=== PATIENT | female | born 1990 | race Caucasian/White ===

== ENCOUNTER 2019-05-01 07:00 | Observation (INO) | payer OTHER ==
[~2019-05-01] VITALS: Ht 160 cm; Wt 79.4 kg
== END 2019-05-01 08:10 | disposition home or self-care (01) | DRG 833 ==
LOC: LDRP 07:00
PROVIDERS: ADMIT Obstetrics & Gynecology; ATTEND Obstetrics & Gynecology
DX: O62.9 Abnormality of forces of labor, unspecified (principal); O12.03 Gestational edema, third trimester; O26.893 Other specified pregnancy related conditions, third trimester; R11.0 Nausea; Z3A.40 40 weeks gestation of pregnancy
CPT/HCPCS: 59025; 81002; G0378

== ENCOUNTER 2019-05-02 00:28 | Inpatient (IN) | payer OTHER ==
[~2019-05-02] VITALS: Ht 160 cm; Wt 79.4 kg
[2019-05-02] MEDS ORDERED: LACT. RINGERS/OXYTOCIN 20UNITS 1,000 ML IV SCH (01:09)
[2019-05-02] MEDS ORDERED: LIDOCAINE 2%HCL (LOCAL ANESTH.) INJ 20ML MDV ID ONE (01:15)
[2019-05-02] MEDS ORDERED: METHYLERGONOVINE MALEATE 0.2 MG/ML AMP IM PRN (01:15)
[2019-05-02] MEDS ORDERED: DERMOPLAST 60ML BOTTLE TOP PRN (01:15)
[2019-05-02] MEDS ORDERED: CARBOPROST TROMETHAMINE 250 MCG/1ML VIAL IM PRN (01:15)
[2019-05-02] MEDS ORDERED: PHISODERM TOP SOLN 240ML BTL TOP PRN (01:15)
[2019-05-02] MEDS ORDERED: BUTORPHANOL TARTRATE 2 MG/1 ML VIAL IM PRN (01:15)
[2019-05-02] MEDS ORDERED: WITCH HAZEL-GLYCERIN PAD TOP PRN (01:15)
[2019-05-02 01:55] LABS: Basophils # (auto) 0 uL; Basophils % (auto) 0.1 % (0.0-2.0); Eosinophils # (auto) 0 uL; Eosinophils % (auto) 0.1 % (0.0-7.0); Hemoglobin 13.1 g/dL (12.2-16.2); Lymphocytes # (auto) 1.6 uL; Lymphocytes % (auto) 12.7 % (10.0-50.0); Mean Corpuscular Hemoglobin 28.5 pg (28.0-32.0); Mean Corpuscular Hgb Conc. 33.4 g/dL (32.0-36.0); Mean Corpuscular Volume 85.3 fL (80.0-100.0); Monocytes # (auto) 0.8 uL; Monocytes % (auto) 6.8 % (0.0-12.0); Neutrophils % (auto) 80.3 % (37.0-80.0); Nucleated Red Blood Cells % 0.1 %; Platelet Count (auto) 315 10^3/uL (140-450); Red Blood Cells 4.58 10^6/uL (4.0-5.20); Red Cell Distribution Width 14.7 % (11.8-14.3); White Blood Cell 12.5 10^3/uL (4.4-10.8)
[2019-05-02 01:59] LABS: Urine Bacteria FEW /hpf (None Seen); Urine Blood Negative /uL (Negative); Urine Mucus FEW (None Seen); Urine Specific Gravity 1.018 (1.001-1.035); Urine WBC 6 /hpf (0 - 5)
[2019-05-02 02:07] LABS: INR 0.96 (0.9-1.15); Partial Thromboplastin Time 28.8 sec (23.64-32.05)
[2019-05-02 02:15] LABS: Albumin 2.8 g/dL (3.4-5.0); BUN/Creatinine Ratio 11.9; Calcium 8.8 mg/dL (8.5-10.1); Potassium 3.6 mmol/L (3.5-5.1)
[2019-05-02 02:18] LABS: Bilirubin, Total 0.8 mg/dL (0.2-1.0); Total Protein 7.5 g/dL (6.4-8.2)
[2019-05-02] MEDS ORDERED: ceFAZolin 1GM/50ML 50 ML IV ONE (02:45)
[2019-05-02] MEDS ORDERED: ceFAZolin 1GM/50ML 100 ML IV ONE (02:48)
[2019-05-02 02:58] LABS: Alcohol, Urine < 3.0 mg/dL (0-5); Amphetamine Screen, Urine NEGATIVE (NEGATIVE); Barbiturate Scree,Urine NEGATIVE (NEGATIVE); Benzodiazephine Screen, Urine NEGATIVE (NEGATIVE); Cannabinoid Screen, Urine NEGATIVE (NEGATIVE); Cocaine Screen, Urine NEGATIVE (NEGATIVE); Opiate Scree,Urine NEGATIVE (NEGATIVE); Phencyclidine Screen, Urine NEGATIVE (NEGATIVE)
[2019-05-02] MEDS ORDERED: ePHEDrine SULFATE 50 MG/ML AMP IV PRN (03:30)
[2019-05-02] MEDS ORDERED: LIDOCAINE HCL 2 %PF INJ 10ML AMP IJ ONE ×2 (03:30→21:53)
[2019-05-02] MEDS ORDERED: fentaNYL CITRATE 100 MCG/2 ML VL IV ONE (03:30)
[2019-05-02] MEDS: LACTATED RINGER'S 1,000 ML IV SCH ×3 (04:20→12:02)
[2019-05-02] MEDS: fentaNYL 200mCg/100ml W ROPIVA 100 ML EPI SCH ×2 (04:36→14:29)
[2019-05-02] MEDS ORDERED: ceFAZolin 1GM/50ML 50 ML IV SCH (14:00)
[2019-05-02] MEDS ORDERED: fentaNYL CITRATE 100 MCG/2 ML VL ONE (21:54)
[2019-05-02] MEDS ORDERED: SUCCINYLCHOLINE CHLORIDE 20 MG/ML 10ML VIAL IV ONE (22:02)
[2019-05-02] MEDS ORDERED: PROPOFOL 10 MG/ML 20 ML IV ONE (22:06)
[2019-05-02] MEDS ORDERED: ePHEDrine SULFATE 50 MG/ML AMP ONE (22:08)
[2019-05-02] MEDS ORDERED: OXYTOCIN 10 UNIT/ML 10ML VIAL ONE (22:09)
[2019-05-02] MEDS ORDERED: CLINDAMYCIN 900MG IV 50 ML IV ONE ×2 (22:12→23:30)
[2019-05-02] MEDS ORDERED: PHENYLEPHRINE HCL 10 MG/ML VL ONE (22:21)
[2019-05-02] MEDS ORDERED: MORPHINE SULF(PF) 0.5MG/ML 10ML VIAL ONE (22:33)
[2019-05-02] MEDS ORDERED: MIDAZOLAM HCL 1MG/1ML-2 ML VIAL ONE (22:44)
[2019-05-02] MEDS ORDERED: ONDANSETRON HCL 4 MG/2 ML VIAL IV PRN ×3 (23:00→23:30)
[2019-05-02] MEDS ORDERED: METOCLOPRAMIDE HCL 5MG/ml INJ 2ml VIAL IV PRN (23:00)
[2019-05-02] MEDS ORDERED: diphenhdrAMINE HCL 50 MG/1 ML VL IV PRN (23:00)
[2019-05-02] MEDS ORDERED: KETOROLAC TROMETH 15 mg/ml 1ML VL IV PRN (23:00)
[2019-05-02] MEDS ORDERED: NALOXONE HCL 0.4 MG/ML VIAL IV PRN ×2 (23:00)
[2019-05-02] MEDS ORDERED: HYDROmorphone HCL 2 MG/ML VL IV PRN (23:00)
[2019-05-02] MEDS ORDERED: ACETAMINOPHEN IV 1000 MG/100ML (10MG/ML) IV PRN (23:30)
[2019-05-03] VITALS (16 sets, daily range): BP systolic 102–129; BP diastolic 54–79
--- NOTE | 2019-05-03 00:05 | NUR ---
Report from NATE in PACU Patient A&O x4. VS: 121/74 HR 84 SR, 98.2 temp 97% on room air. EBL was 800ml, Collins patient and draining to gravity total out 575ml. On clear liquid diet. Pt. received Duramorph, 40of PIT, now running LR bolus per Dr. Herrera. Per Dr. Herrera give another 1L of LR at 125ml/hr. Patient received 900mg of Clindamycin in OR approx 2212. and Dilaudid 0.25mg at 2329 Firm deep 2 above U with no bleeding, perineum swollen.
--- NOTE | 2019-05-03 00:10 | NUR ---
Post Op for LDRP: Received patient from PACU via bed to room 8B. Assessment with ROSTER CLERK clive. Patient 2 above U firm and no bleeding at this time. Patient A/A/Ox4, abdominal binder and bilateral SCD's are in place, IV fluids placed on pump and infusing per order, incisional site dressing clean/dry/intact and Collins Catheter to gravity draining clear yellow urine.
[2019-05-03] MEDS: LACTATED RINGER'S 1,000 ML IV SCH ×3 (00:47→17:16)
[2019-05-03] MEDS ORDERED: GENTAMICIN SULFATE 80 MG in D5W 5% 100 ML IV SCH ×2 (06:00→08:00)
--- NOTE | 2019-05-03 06:15 | NUR ---
Report received from Magi Dorado RN on stable pt. Assumed care. Addendum: 05/03/19 at 0646 by Jacki Avila RN Amended: Links added.
--- NOTE | 2019-05-03 06:31 | NUR ---
Lower abdominal incision open to air, dressing C/D/I. Abdominal binder in place and SCD's on. Pt educated on importance of using Incentive Spirometer. Pt educated to use IS at least 10 x per hour while awake. Pt verbalizes understanding of teaching. Addendum: 05/03/19 at 0704 by Jacki Avila RN Amended: Links added.
[2019-05-03 07:20] LABS: Basophils # (auto) 0 uL; Basophils % (auto) 0.2 % (0.0-2.0); Eosinophils # (auto) 0 uL; Hematocrit 27.7 % (36.0-46.0); Hemoglobin 9.5 g/dL (12.2-16.2); Lymphocytes # (auto) 1.9 uL; Mean Corpuscular Hemoglobin 29.3 pg (28.0-32.0); Mean Corpuscular Hgb Conc. 34.1 g/dL (32.0-36.0); Mean Corpuscular Volume 86.1 fL (80.0-100.0); Monocytes # (auto) 1.4 uL; Neutrophils % (auto) 80.8 % (37.0-80.0); Platelet Count (auto) 249 10^3/uL (140-450); Red Blood Cells 3.22 10^6/uL (4.0-5.20); White Blood Cell 17.3 10^3/uL (4.4-10.8)
--- NOTE | 2019-05-03 08:40 | NUR ---
Breast pump provided to pt. Pt educated on the benefits of pumping for . Pt educated on pumping every 2-3 hours for at least 15 minutes to stimulate breast milk production. Pt verbalizes understanding and return demonstration provided by pt. Pt also educated on the importance of pain management. Pt verbalizes understanding and declines pain medication at this time.
--- NOTE | 2019-05-03 08:47 | NUR ---
Dr. Jensen called and informed of current Hgb 9.5 and HCT 27.7, CBC trends given. Dr. Jensen states that she will inform Dr. Leavitt. No new orders received.
[2019-05-03] MEDS: HYDROmorphone HCL 2 MG/ML VL IV PRN ×2 (09:37→14:03)
--- NOTE | 2019-05-03 10:30 | NUR ---
Rounds completed, pt asleep with no signs of distress or discomfort noted. Call light within reach and family at bedside.
--- NOTE | 2019-05-03 10:37 | NUR ---
Dr. Leavitt called regarding plan for Collins catheter removal upon ambulation. Dr. Leavitt informed that pt does have moderate labial swelling. Dr. Leavitt also informed of current Hgb 9.5 and HCT 27.7. Orders received to keep Collins in place at this time.
--- NOTE | 2019-05-03 11:30 | NUR ---
Pt wishes to eat lunch prior to ambulation. Pt informed to call RN when finished for ricky care, catheter care, and ambulation to the chair. Pt verbalizes understanding.
--- NOTE | 2019-05-03 12:15 | NUR ---
Ricky care and catheter care provided. Underwear and ricky pad placed. New gown given.
--- NOTE | 2019-05-03 12:15 | NUR ---
Lower abdominal dressing removed, well approximated with waleska intact. No redness, drainage, or bleeding noted.
--- NOTE | 2019-05-03 12:28 | NUR ---
Ambulation: Pt assisted to side of bed to dangle prior to ambulation. Pt denies dizziness. Patient OOB with standby assistance by RN. Patient ambulated to chair with steady gait. Collins catheter remains in pl;freddie, per orders. Bed linen changed. Pt wishes to remain in chair to pump at this time. No signs of distress or discomfort noted at this time.
--- NOTE | 2019-05-03 13:40 | NUR ---
Dr. Jensen at the nurses station, orders received to start post op day 1 orders, advance diet to full liquids, and apply sand bag and ice to the perineal area.
[2019-05-03] MEDS: CLINDAMYCIN 900MG IV 50 ML IV SCH ×2 (14:03→22:53)
[2019-05-03] MEDS ORDERED: LACTATED RINGER'S 1,000 ML IV SCH (14:13)
[2019-05-03] MEDS ORDERED: BISACODYL 10 MG RECT SUPP PR PRN (14:15)
[2019-05-03] MEDS ORDERED: HYDROcodone-ACET 5/325MG TAB PO PRN ×2 (14:15)
[2019-05-03] MEDS: GENTAMICIN SULFATE 80 MG in D5W 5% 100 ML IV SCH (16:23)
[2019-05-03] MEDS: IBUPROFEN 800 MG TAB PO PRN (16:23)
[2019-05-03] MEDS: SIMETHICONE 80 MG CHEWABLE TABLET PO SCH (17:33)
--- NOTE | 2019-05-03 17:40 | NUR ---
Ricky care and catheter care performed. Ice pack and tucks pads applied to perineum. New ricky pad changed. 10lb weight applied to perineum.
--- NOTE | 2019-05-03 18:14 | NUR ---
Report given to Troy Hassan RN on stable pt. Relinquished care. Addendum: 05/03/19 at 1815 by Jacki Avila RN Amended: Links added.
--- NOTE | 2019-05-03 18:30 | NUR ---
Pericare and Collins care completed by RN. Peripad changed and 10 lb sandbag applied to perineum. Patient's incision clean, dry, intact with no bleeding or redness at site. Edges of incision are well approximated. Collins catheter draining per gravity per Dr's order to continue.
--- NOTE | 2019-05-03 21:30 | NUR ---
Pt assisted with ambulation. Assisted to sit up to side of bed prior to ambulation. Pt denies dizziness or lightheadesness. Ambulates with steady gait with standby RN assistance. Collins bag kept with patient and draining to gravity. Pt requests to remain in bedside chair for duration of breastpumping session. Pt tolerates ambulation well.
--- NOTE | 2019-05-03 21:40 | NUR ---
Teaching: Reviewed breastpumping information with patient. Discussed benefits of and risks associated with not . Discussed how to use breastpump, pumping every 2-3 hours to maintain nipple stimulation for supply and how to store breastmilk once expressed. Provided information of medication side effects related to . All questions and concerns addressed at this time. Patient verbalized understanding of information.
--- NOTE | 2019-05-03 22:20 | NUR ---
Left antecubital IV site continues to leak fluid despite reinforcement and pt complaining of pain when bending her arm. New 22 gauge IV started to right hand. IV site clean, dry, and patent, flushes with no resistance. Running IV fluids started per existing order. Pt tolerates procedure well.
--- NOTE | 2019-05-03 22:30 | NUR ---
IV at left antecubital site removal. IV DC'd with clean sterile technique, catheter fully intact. Pressure dressing applied to site. Patient tolerated well.
[2019-05-04] MEDS: CLINDAMYCIN 900MG IV 50 ML IV SCH (00:44)
[2019-05-04] MEDS: DOCUSATE SOD 100 MG CAP PO SCH ×3 (00:56→22:34)
[2019-05-04] MEDS: SIMETHICONE 80 MG CHEWABLE TABLET PO SCH ×4 (00:56→22:34)
[2019-05-04] MEDS: GENTAMICIN SULFATE 80 MG in D5W 5% 100 ML IV SCH (00:58)
[2019-05-04] MEDS: IBUPROFEN 800 MG TAB PO PRN ×3 (01:08→17:47)
[2019-05-04 03:20] VITALS: BP 119/74
[2019-05-04] MEDS: LACTATED RINGER'S 1,000 ML IV SCH (05:46)
--- NOTE | 2019-05-04 06:13 | NUR ---
Report received from Troy Hassan RN on stable pt. Assumed care. Addendum: 05/04/19 at 0644 by Jacki Avila RN Amended: Links added.
--- NOTE | 2019-05-04 06:15 | NUR ---
Report given to Gabriella Avila RN. Assumed care of patient.
[2019-05-04 06:35] VITALS: BP 113/73
--- NOTE | 2019-05-04 07:35 | NUR ---
Dr. Leavitt at nurses station, orders received to d/c Collins catheter, saline lock IV, and advance diet to Regular diet.
--- NOTE | 2019-05-04 08:08 | NUR ---
Bullard catheter dc'd Order to discontinue bullard catheter. Bullard dc'd with clean technique following deflation of balloon. Patient tolerated well with no complaints of pain. Continue care.
--- NOTE | 2019-05-04 09:50 | NUR ---
To BR with minimal assistance, voided 300ml, instructed on use of peribottle, self pericare done, pads and mesh underwear changed. To sink, brushed teeth and sitting in chair at BS to pump. Call light within reach.
[2019-05-04] MEDS ORDERED: DOCUSATE CALCIUM 240 MG CAP PO SCH (10:00)
[2019-05-04 10:56] VITALS: BP 110/67
--- NOTE | 2019-05-04 12:30 | NUR ---
Pt had a moderate size bowel movement and was able to void without difficulty.
[2019-05-04] MEDS ORDERED: PREN-96 PO (14:20)
[2019-05-04 14:30] VITALS: BP 117/66
--- NOTE | 2019-05-04 18:30 | NUR ---
Report given to Gabriella Clark RN on stable pt. Relinquished care. Addendum: 05/04/19 at 1842 by Jacki Avila RN Amended: Links added.
[2019-05-04 19:00] VITALS: BP 120/74
[2019-05-04 23:00] VITALS: BP 113/55
--- NOTE | 2019-05-05 01:00 | NUR ---
Discharge: Discharge instructions given as ordered. Pt encouraged to follow up with [employer]PET [employer] HELPER as instructed. All questions and concerns addressed. Patient verbalized understanding. Medication reconciliation completed.
[2019-05-05] MEDS: IBUPROFEN 800 MG TAB PO PRN (01:41)
[2019-05-05 03:00] VITALS: BP 104/60
--- NOTE | 2019-05-05 03:48 | NUR ---
C/S Staple Removal DC Note: Orders received to remove waleska. Waleska removed using sterile technique. Lower abdominal incision approximated, no drainage/redness/inflammation visualized at time of removal. Steri-strips applied. Education provided on incisional care. Patient verbalized understanding and willingness to comply to instructions/teaching provided.
[2019-05-05] MEDS: SIMETHICONE 80 MG CHEWABLE TABLET PO SCH (06:00)
--- NOTE | 2019-05-05 06:03 | NUR ---
Report received from Gabriella Clark RN on stable pt. Assumed care. Addendum: 05/05/19 at 0851 by Jacki Avila RN Amended: Links added.
[2019-05-05 06:29] VITALS: BP 102/60
--- NOTE | 2019-05-05 06:29 | NUR ---
Lower abdominal incision open to air, well approximated with steri strips in place. Abdominal binder in place. Incentive spirometer at bedside. Pt educated on importance of ambulation and use of IS. Pt verbalizes understanding. Pt stable, no signs of distress or discomfort noted.
--- NOTE | 2019-05-05 09:02 | NUR ---
Discharge: Patient taken to vehicle via wheelchair with all personal belongings, accompanied by staff and family member. No distress noted at time of departure, no adverse changes in status since initial assessment.
== END 2019-05-05 09:02 | disposition home or self-care (01) | DRG 788 ==
LOC: OBSVTOIN 00:28 → LDRP 00:28
PROVIDERS: ADMIT Obstetrics & Gynecology; ATTEND Obstetrics & Gynecology
PROC: 10D00Z1 Extraction of Products of Conception, Low, Open Approach (ICD-10-PCS; principal; 2019-05-02 21:51)
DX: O77.0 Labor and delivery complicated by meconium in amniotic fluid (principal); O62.2 Other uterine inertia; O99.62 Diseases of the digestive system complicating childbirth; K21.9 Gastro-esophageal reflux disease without esophagitis; Z37.0 Single live birth; Z3A.40 40 weeks gestation of pregnancy; Z88.0 Allergy status to penicillin
CPT/HCPCS: 36415; 51702; 59025; 62282; 76815; 80053; 80307; 81001; 81002; 82948; 84112; 85025; 85610; 85730; 86592; 86703; 86762; 86850; 86900; 86901; 87340; 94760; 94762; 96361; 96365; 96366; 96374; 96375; G0378; J0131; J0330; J0690; J2250; J2590; J2704; J3490; J7060